=== PATIENT | male | born 1955 | race Caucasian/White ===

== ENCOUNTER 2016-08-15 05:03 | Day surgery (SDC) | payer MEDICARE ==
--- NOTE | ~2016-08-15 | OP ---
Record Of Operation [facility] [address] [place]. [address] NAME: SAKSHI HERRERA : 57 STATUS : REG [facility] PAT#: [id number] AGE: 61 ADM/REG DATE : 08/15/16 MR#: [id number] REPORT SERV DATE: 08/15/16 DICTATED BY: JUDY ROBERTS DATE: 08/15/16 REPORT STATUS : Draft TRANSCRIBED BY: MODSilvia DATE: 08/15/16 DATE OF PROCEDURE: 08/15/2016 PREPROCEDURE DIAGNOSIS: 9 mm right ureteral calculus. POSTPROCEDURE DIAGNOSIS: 9 mm right ureteral calculus. PROCEDURE: Right ESWL. SURGEON: Judy Roberts M.D. PLUMBING FOREMAN: Ayana. ANESTHESIA: MAC. HISTORY: Mr. Herrera is a 61-year-old gentleman, with a large right ureteral stone. We discussed treatment options and he requested right ESWL. Risks specific to this procedure include, but not limited to bleeding, infection, incomplete stone fragmentation, Steinstrasse, hematoma, injury to neighboring organs, need for further urologic procedures, anesthesia complications, and so forth. I answered all of his questions I believe to his satisfaction. Subsequently, he requested the procedure and provided informed written consent. PROCEDURE IN DETAIL: On 08/15/2016, the patient was brought to the lithotripsy suite. He was placed supine on the [employer]ier Compact Delta II Lithotripter. Biplanar fluoroscopy was used to localize right ureteral calculus. A time-out was called. The proper patient and procedure were confirmed. Levaquin was administered as a perioperative antibiotic. At this time, the Anesthesia team established monitored anesthesia care. Subsequently, we delivered a total of 2500 shocks at a maximum power level of 4 and rate of 120 shocks per minute to the stone. Fluoroscopy time was 5 minutes and 4 seconds. The patient tolerated the procedure well without immediate complications. He was awakened and transferred to the recovery area in stable condition. RAC/DAMIAN Judy Roberts M.D. / [id number] CC: Judy Roberts M.D. Ej Rizvi M.D.
[~2016-08-15 05:03] MED LIST: ABILIFY10 PO; ABILIFY2 PO; ABILIFY20 MG PO; ABILIFY30 MG PO; ACTOS45 PO; ADVAIR100 INH; ADVAIR115P INH; AMARYL4 PO; ASA5GR PO; COGEN1 PO; COREG3 PO; FENOFIBRATE 130 MG PO; FLOMAX4 PO; FOLBEE PLU1 PO; FOLBEE PO; FORTAMET1000 MG PO; GLUCOPHAGE1000 MG PO; HALF81 PO; IMDUR30 PO; KDUR20 PO; KLONO1 PO; KLOR-CON M2020 MEQ PO; LIPITOR40 PO; LIPITOR80 MG PO; LITHOBID3 PO; LOP25 PO; MICARDIS40 PO; MICARDIS80 PO; NAP500 PO; PCET PO; PEPTO BISMOL LIQ1 ML PO; PERCOCET1 TA4 PO; PR25 PO; PROAIR HFA INH; PROZAC40 MG PO; ROZEREM8 MG PO; SAPHRIS10 MG PO; SAPHRIS10 MG SL; TRILEP300 PO; WELLBUTRIN200 MG PO; ZETIA PO
== END 2016-08-15 10:07 | disposition home or self-care (01) ==
LOC: SDC 05:03
PROVIDERS: Urology
PROC: 0TF6XZZ Fragmentation in Right Ureter, External Approach (ICD-10-PCS; principal; 2016-08-15 07:00)
DX: N20.1 Calculus of ureter (principal); F43.10 Post-traumatic stress disorder, unspecified; R25.1 Tremor, unspecified; I25.10 Atherosclerotic heart disease of native coronary artery without angina pectoris; I49.9 Cardiac arrhythmia, unspecified; J44.9 Chronic obstructive pulmonary disease, unspecified; G47.33 Obstructive sleep apnea (adult) (pediatric); K21.9 Gastro-esophageal reflux disease without esophagitis; F32.9 Major depressive disorder, single episode, unspecified; E11.9 Type 2 diabetes mellitus without complications; M19.90 Unspecified osteoarthritis, unspecified site; M10.9 Gout, unspecified; M54.5 Low back pain; N40.0 Benign prostatic hyperplasia without lower urinary tract symptoms; L30.9 Dermatitis, unspecified; R41.3 Other amnesia; Z95.5 Presence of coronary angioplasty implant and graft; Z98.890 Other specified postprocedural states; Z79.899 Other long term (current) drug therapy; Z79.51 Long term (current) use of inhaled steroids; Z79.84 Long term (current) use of oral hypoglycemic drugs; Z79.891 Long term (current) use of opiate analgesic; Z79.82 Long term (current) use of aspirin
CPT/HCPCS: 50590; 74000; 82962; 93005; J2250; J3010